=== PATIENT | male | born 1980 | race Caucasian/White ===

== ENCOUNTER 2020-12-05 20:03 | Emergency (ER) | payer OTHER, SELFPAY ==
--- NOTE | ~2020-12-05 | CT_ITS ---
EXAMINATION: CT HEAD WITHOUT CONTRAST CLINICAL INFORMATION: Trauma COMPARISON: None TECHNIQUE: Contiguous axial imaging was performed from the skull base to vertex without intravenous administration of contrast. This CT examination was performed using dose optimization techniques as appropriate, variously including the following: *Automated exposure control *Adjustment of mA and/or kV according to patient size (this includes techniques or standardized protocols for targeted exams where dose is matched to indication/reason for exam; i.e. extremities or head) *Use of iterative reconstruction technique DLP: 756 mGy-cm FINDINGS: There is no evidence of acute intracranial hemorrhage or territorial infarction. No abnormal mass effect or midline shift is seen. Pedraza to white matter differentiation is well preserved. No extra-axial fluid collections are identified. The ventricles are normal in size. There is no abnormal attenuation within the brain parenchyma. Left frontal calvarial subgaleal hematoma. Underlying calvarium intact. Skull base intact. Paranasal sinuses and mastoid air cells are clear. Right globe prosthesis. Left orbit and globe unremarkable. CT/CT head/brain wo con IMPRESSION: No acute intracranial pathology.
[2020-12-05 20:17] VITALS: BP 133/92; PULSE 118; RESP 15; TEMP 36.6; O2SAT 95; BMI 35.5
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
[2020-12-05] MEDS: Ketorolac Tromethamine 15 MG/ML VIAL IM (22:33)
[2020-12-05] MEDS: Acetaminophen 325 MG TABLET 975 MG PO (22:33)
== END 2020-12-05 22:47 | disposition home or self-care (01) ==
PROVIDERS: Emergency Provider Student in an Organized Health Care Education/Training Program
DX: S00.83XA Contusion of other part of head, initial encounter (principal); G44.309 Post-traumatic headache, unspecified, not intractable; H57.11 Ocular pain, right eye; Y09 Assault by unspecified means; Y93.9 Activity, unspecified; Y92.9 Unspecified place or not applicable; Y99.9 Unspecified external cause status
CPT/HCPCS: 70450; 96372; 99283; 99284; J1885